=== PATIENT | male | born 1985 | race Caucasian/White ===

== ENCOUNTER 2022-09-24 14:31 | Day surgery (SDC) | payer OTHER, SELFPAY ==
[2022-09-24] VITALS (18 sets, daily range): BP systolic 114–146; BP diastolic 62–98; PULSE 74–103; RESP 16–20; TEMP 36.2–37.6; O2SAT 91–100; BMI 35.2
--- NOTE | 2022-09-24 14:33 | CRLHL7_ITS ---
For Patients: As a result of the Century Cures Act, medical imaging exams and procedure reports are released immediately into your electronic medical record. You may view this report before your referring provider. If you have questions, please contact your health care provider. INDICATION: Peritonsillar abscess TECHNIQUE: CT soft tissue of the neck was acquired with 150 cc Isovue 370 intravenous contrast. COMPARISON: None FINDINGS: Included intracranial portions are unremarkable. Orbits unremarkable. Paranasal sinuses clear. Parotid glands unremarkable. Slight enlargement of the right submandibular gland, probably is secondary to the adjacent inflammation, see comments below. Mild adenoidal enlargement with prominent enlargement of the tonsillar pillars causing severe oropharyngeal narrowing. Marked heterogeneity of the right tonsil with a somewhat crescent-shaped area of low density. There is a rim enhancing superior component which measures 1.9 x 0.9 x 1.5 centimeters with a linear hypodense band extending close to although not definitely communicating with an inferior tonsillar collection measuring 8 x 8 x 8 millimeters (see series 4, image 41). Increased number of jugular lymph nodes, greatest at level 2 on the right measuring 13 millimeters. Epiglottis unremarkable. Thyroid gland unremarkable. IMPRESSION: 1. Marked tonsillar enlargement consistent with tonsillitis as well as adenoidal enlargement. Asymmetric enlargement of the right tonsil with a tonsillar abscess measuring 1.9 x 0.9 x 1.5 centimeters at its largest area. This abscess extends inferiorly although this does not likely connect to a second collection/abscess at the inferior margin of the tonsil which measures 8 x 8 x 8 millimeters. 2. Severe oropharyngeal narrowing secondary to the tonsillar inflammation. 3. Jugular lymphadenopathy, presumed reactive. Please note that all CT scans at this facility use dose modulation, iterative reconstruction, and/or weight-based dosing when appropriate to reduce radiation dose to as low as reasonably achievable. Dictated by Bhavik Villegas MD @ 09/24/2022 4:47:21 PM (Electronically Signed)
--- NOTE | 2022-09-24 14:55 | ED.GENADULT ---
HPI - General Adult General Date Seen: 09/24/22 Chief complaint: Sore Throat Stated complaint: Abscess in back of throat, blocking airway Time Seen by Provider: 09/24/22 14:33 Source: patient and family Mode of arrival: ambulatory Limitations: no limitations History of Present Illness HPI narrative: Patient is a very nice 37-year-old gentleman who presents here for evaluation after 1st being seen in urgent care with the sore throat, his right-sided throat swelling, 3-4 days onset, worse when he swallows, and a slight fever. He notes that he has had this before, had to have it drained in the operating room, and when I notice and tell him that he had may was at a peritonsillar abscess. Stated this occurred approximately 10 years ago, no known drug allergies, denies any really significant runny nose, strep throat was done at Urgent Care, and I do not know the result. He is taking Tylenol and ibuprofen. No chronic medications, no allergies, otherwise healthy. Related Data Home Medications Medication Instructions Recorded Confirmed No Known Home Medications 09/24/22 09/24/22 Allergies Allergy/AdvReac Type Severity Reaction Status Date / Time No Known Drug Allergies Allergy Verified 09/24/22 14:04 Review of Systems Status of ROS: Reports: 10 or more systems reviewed and unremarkable except as noted in History and below PFSH PFS Social History Smoking Status: Never smoker Do you use any of these nicotine containing products: None How often do you have a drink containing alcohol: monthly or less How often do you have six or more drinks on one occasion: Never AUDIT-C Alcohol total score: 1 Non-prescribed substance use: denies use Exam Narrative: Exam Narrative: Patient is seen in room 4 he is in no apparent distress, his voice is however is a little bit muffled, he able to swallow secretions, TMs bilaterally are normal oropharynx reveals right-sided peritonsillar swelling encroaching on the uvula consistent with a peritonsillar abscess, there is some redness of his palate also. Lymphadenopathy is 2+ on the right side, absence on the left side, he has no meningismus able to move his neck normally, no swelling of his neck. Chest is clear bilaterally with no wheezing crackles noted heart sounds are normal, abdomen is soft there is no guarding no organomegaly. Const: Vital Signs, click to edit/add: Vital Signs - 24 hr 09/24/22 14:41 Temperature 98.5 F Pulse Rate [Right Pulse Oximeter] 103 H Respiratory Rate 20 Blood Pressure [Ri ght Upper Arm] 115/82 Pulse Oximetry 101 H Oxygen Delivery Me thod Room Air Documenting provider has reviewed patient's vital signs: yes Course Course Hospital Course: Patient has done well, his CT scan of his neck shows multiple loculated areas of abscess, I made is ENT physician aware of this, he will be taken to the operating room. For definitive management. I will discuss with his doctor about antibiotics, his pain is improved, He is COVID positive, would suggest precautions secondary to this, ASA 1 for surgery, Vital Signs Vital signs: Initial Vital Signs Temperature 98.5 F 09/24/22 14:41 Temperature Source Temporal Artery Scan 09/24/22 14:41 Pulse Rate 103 H 09/24/22 14:41 Respiratory Rate 20 09/24/22 14:41 Blood Pressure 115/82 09/24/22 14:41 Blood Pressure Mean 93 09/24/22 14:41 Blood Pressure Position Sitting 09/24/22 14:41 Pulse Oximetry 101 H 09/24/22 14:41 Oxygen Delivery Method Room Air 09/24/22 14:41 Vital Signs Temperature 98.5 F 09/24/22 14:41 Pulse Rate 103 H 09/24/22 14:41 Respiratory Rate 20 09/24/22 14:41 Blood Pressure 115/82 09/24/22 14:41 Pulse Oximetry 101 H 09/24/22 14:41 Oxygen Delivery Method Room Air 09/24/22 14:41 Temperature 98.5 F 09/24/22 14:41 Pulse Rate 103 H 09/24/22 14:41 Respiratory Rate 20 09/24/22 14:41 Blood Pressure 115/82 09/24/22 14:41 Pulse Oximetry 101 H 09/24/22 14:41 Oxygen Delivery Method Room Air 09/24/22 14:41 Medical Decision Making MDM Narrative Medical decision making narrative: During this evaluation I considered multiple diagnosis including her tonsillar abscess, strep throat, tonsillitis, retropharyngeal abscess, Brandon's angina, tooth abscess, thyroid issues, including thyroiditis, among the other issues. We will go ahead and start an IV, give pain medications CT with the contrast will be done of his soft tissue of his neck, I will communicate with ENT physician once these are done. Lab Data Lab results reviewed: Yes I reviewed the patient's lab results Labs: Lab Results 09/24/22 09/24/22 Range/Units 14:33 14:55 Sodium 140 (135-149) mmol/L Potassium 4.4 (3.6-5.1) mmol/L Chloride 102 (96-114) mmol/L Carbon Dioxide 29 (20-32) mmol/L BUN 12 (5-24) mg/dL Creatinine 1.0 (0.5-1.5) mg/dL Estimated Creat Clear 140.00 Estimated GFR 101 ml/min Glucose 105 (60-115) mg/dL Calcium 9.6 (8.4-10.6) mg/dL SARS-CoV-2 (PCR) POSITIVE SARS-CoV-2 A (Negative) Influenza Type A (PCR) Negative PCR FLU A (Negative) Influenza Type B (PCR) Negative PCR FLU B (Negative) RSV (PCR) Negative PCR RSV (Negative) Imaging Data Soft tissue neck: Attestation: I have reviewed the pertinent imaging results. My impression: Multiple loculated areas of abscess await Radiology assessment Discharge Plan Discharge Clinical Impression: Lab test positive for detection of COVID-19 virus, Abscess, peritonsillar Patient Disposition: XFER to OR Condition: Stable Prescriptions: No Action No Known Home Medications Follow Up/Referrals: Deepak Atkinson MD [Staff Physician] -
[2022-09-24] MEDS: 0.9 % SODIUM CHLORIDE 1000 ml 1,000 ML IV ×2 (15:11→16:20)
[2022-09-24] MEDS: HYDROmorphone 0.5 mg/0.5 ml inj IVP (15:11)
[2022-09-24] MEDS: KETOROLAC 30 MG/ML inj IVP (15:11)
[2022-09-24] MEDS: ONDANSETRON 2 MG/ML inj 4 MG IVP (15:11)
[2022-09-24 15:35] LABS: Chloride* 102 mmol/L (96-114); Sodium* 140 mmol/L (135-149)
[2022-09-24 15:36] LABS: Potassium* 4.4 mmol/L (3.6-5.1)
[2022-09-24 15:38] LABS: Estimated Glomerular Filt Rate 101 ml/min
[2022-09-24 15:39] LABS: Blood Urea Nitrogen* 12 mg/dL (5-24); Carbon Dioxide* 29 mmol/L (20-32); Glucose* 105 mg/dL (60-115)
[2022-09-24 15:40] LABS: Calcium* 9.6 mg/dL (8.4-10.6)
[2022-09-24 15:45] LABS: PCR FLU A Negative PCR FLU A (Negative); PCR FLU B Negative PCR FLU B (Negative); PCR RSV Negative PCR RSV (Negative)
[2022-09-24 16:00] LABS: SARS PCR* POSITIVE SARS-CoV-2 (Negative)
[2022-09-24 16:34] LABS: Basophils Percent Auto 0.3 % (0.0-3.0); Eosinophils Percent Auto 0.9 % (0.0-7.0); Hematocrit 49.3 % (37.0-53.0); Hemoglobin* 17.2 gm/dL (13.5-17.5); Immature Granulocytes Pct Auto 0.4 %; Lymphocytes Percent Auto 21.9 % (20-44); Mean Corpuscular HGB Conc 35 gm/dL (32-36); Mean Corpuscular Hemoglobin 31 pg (26-34); Mean Corpuscular Volume 89 fL (80-100); Monocytes Percent Auto 5.8 % (0.0-11.0); Neutrophils Percent Auto 70.7 % (42.0-72.0); Platelet Count* 224 K/uL (140-440); RDW Coefficient of Variation % 11.7 % (11.5-15.5); Red Blood Count 5.54 m/uL (4.30-5.90); White Blood Count* 11.58 K/uL (4.50-11.00)
[2022-09-24] MEDS: AMPICILLIN/SULBACTAM 3 GM in 0.9 % SODIUM CHLORIDE Mini-bag 100 ML IVPB (16:38)
[2022-09-24 16:39] LABS: Slide Review Reflex No
[2022-09-24 16:51] LABS: C Reactive Protein* 14.3 mg/dL (0.5-1.0)
--- NOTE | 2022-09-24 17:57 | W.PM.ENTCN ---
HPI- ENT Consult Date of Consult Date Seen: 09/24/22 Consult date: 09/24/22 Primary Care Provider: Not a Local Provider Consult Narrative Narrative: Kyle Burk is a 37 year old male [facility] Social History Smoking Status: Never smoker Do you use any of these nicotine containing products: None How often do you have a drink containing alcohol: monthly or less How often do you have six or more drinks on one occasion: Never AUDIT-C Alcohol total score: 1 Non-prescribed substance use: denies use Meds Home Medications and Allergies Allergies Allergy/AdvReac Type Severity Reaction Status Date / Time No Known Drug Allergies Allergy Verified 09/24/22 14:04 Exam Const: Vital Signs, click to edit/add: Vital Signs - 24 hr 09/24/22 14:41 09/24/22 15:30 09/24/22 16:30 Temperature 98.5 F Pulse Rate [Right Pulse Oximeter] 103 H 94 91 Respiratory Rate 20 18 Blood Pressure [Ri ght Upper Arm] 115/82 140/98 H 138/83 Pulse Oximetry 100 98 96 Oxygen Delivery Me thod Room Air Room Air Room Air 09/24/22 17:00 09/24/22 17:30 Temperature Pulse Rate [Right Pulse Oximeter] 90 90 Respiratory Rate 18 18 Blood Pressure [Ri ght Upper Arm] 146/77 H 139/83 Pulse Oximetry 99 96 Oxygen Delivery Me thod Room Air Room Air ENT-CN: Result Labs Labs: Short CBC 09/24/22 Range/Units 14:55 WBC 11.58 H (4.50-11.00) K/uL Hgb 17.2 (13.5-17.5) gm/dL Hct 49.3 (37.0-53.0) % Plt Count 224 (140-440) K/uL BMP 09/24/22 14:55 Sodium 140 Potassium 4.4 Chloride 102 Carbon Dioxide 29 BUN 12 Creatinine 1.0 Glucose 105 Calcium 9.6 Assessment and Plan Assessment and plan (1) Abscess, peritonsillar: Status: Acute (2) Lab test positive for detection of COVID-19 virus: Status: Acute Plan Follow-up from clinic. Reviewed CT scan which shows large right peritonsillar abscess and a smaller abscess that appears to be discontiguous. Discussed with patient we discussed incision and drainage risks including anesthesia bleeding recurrence failure to achieve desired results et cetera were reviewed. He understands and wishes to proceed a set.
--- NOTE | 2022-09-24 17:59 | W.PM.ENTPROC ---
Procedure Note Date of procedure: 09/24/22 Procedure: Preoperative diagnosis right peritonsillar abscess x2 Postoperative diagnosis same Procedure incision drainage 2 right peritonsillar abscesses with amputation of lower 3rd of uvula due to cellulitis Under general endotracheal anesthesia patient was prepped draped usual fashion. The McIvor mouth gag was inserted the tongue retracted forward. The uvula was markedly cellulitic and for enlarged to approximately the size of my thumb. I removed the lower 3rd with needlepoint cautery to allow to decompress. There is a small visible abscess on top of the tonsil inferiorly on the right this was incised and drained. Then the needlepoint cautery was used to make an incision curvilinear from superior tonsil down laterally as well. Sharp and blunt dissection were used to enter the as abscess cavity which was approximately mid tonsil. This was cultured and then copiously irrigated. I widened the opening to 1 cm. The patient was extubated the operating room taken recovery in satisfactory condition. He tolerated procedure well. Blood loss during procedure less than 20 mL. Surgeon: Shane Ovalles MD
--- NOTE | 2022-09-24 18:28 | P.ANES_ITS ---
Anesthesia Charges Start Date/Time Anesthesia Start Date: 09/24/22 Anesthesia Start Time: 17:36 Stop Date/Time Anesthesia Stop Date: 09/24/22 Anesthesia Stop Time: 18:14 Summary Emergency: [employer]
[2022-09-24 19:12] LABS: SARS Antigen* negative (Negative)
--- NOTE | 2022-10-03 10:31 | SUR.PHASEI ---
Charting moved from Phase II to the appropriate Phase I location. Verified all information with Jessica RNs.
== END 2022-09-24 21:30 | disposition home or self-care (01) ==
LOC: ED 16:13 → SS 16:18 → MEDSURG 18:42
PROVIDERS: Emergency Provider Family Medicine; Visit Provider Otolaryngology
PROC: 0C9PXZZ Drainage of Tonsils, External Approach (ICD-10-PCS; CPT 42700; principal; 2022-09-24 16:55)
DX: J36 Peritonsillar abscess (principal); K12.2 Cellulitis and abscess of mouth; U07.1 COVID-19
CPT/HCPCS: 42700; 42140; 00170; 36415; 70491; 80048; 85025; 86140; 87040; 87070; 87075; 87186; 87205; 87426; 87631; 99140; 99284; J0295; J0330; J1100; J1170; J1885; J2250; J2405; J2704; J3010; J7030; Q9967

== ENCOUNTER 2022-11-20 07:57 | Day surgery (SDC) | payer OTHER, SELFPAY ==
[2022-11-20] VITALS (12 sets, daily range): BP systolic 119–138; BP diastolic 74–87; PULSE 68–79; RESP 16–18; TEMP 36.2–37.1; O2SAT 93–98; BMI 36.8
[2022-11-20] MEDS: LACTATED RINGERS 1000 ML 1,000 ML 100 ML IV ×2 (08:00→10:18)
--- NOTE | 2022-11-20 09:05 | W.ANESCHARGE ---
Anesthesia Charges Start Date/Time Anesthesia Start Date: 11/20/22 Anesthesia Start Time: 09:29 Stop Date/Time Anesthesia Stop Date: 11/20/22 Anesthesia Stop Time: 10:20
--- NOTE | 2022-11-20 10:04 | W.PM.ENTPROC ---
Procedure Note Date of procedure: 11/20/22 Procedure: Preoperative diagnosis tonsillar hypertrophy, chronic tonsillitis, history of peritonsillar abscess Postoperative diagnosis same Procedure tonsillectomy Under general endotracheal anesthesia patient was prepped draped usual fashion. The McIvor mouth gag was inserted the tongue retracted forward. The right tonsil was removed with a combination of needlepoint and Coblation. There was some scarring from previous abscess drainage but actually this did not seem to hinder the dissection. The left tonsil was removed in a similar fashion. The nasopharynx was inspected and no significant adenoid tissue was noted. Meticulous hemostasis was achieved in the mid mouth gag was let down the patient observe for 5 minutes. There was no further bleeding. The patient was extubated in the operating room taken recovery in satisfactory condition. Blood loss during procedure less than 10 mL. Surgeon: Shane Ovalles MD
--- NOTE | 2022-11-20 10:19 | W.ANESCHARGE ---
Anesthesia Charges Start Date/Time Anesthesia Start Date: 11/20/22 Anesthesia Start Time: 09:29 Stop Date/Time Anesthesia Stop Date: 11/20/22 Anesthesia Stop Time: 10:20
[2022-11-20] MEDS: OXYCODONE 1 MG/ML ORAL SOLN 5 MG PO (11:09)
[2022-11-20] MEDS: ACETAMINOPHEN 160 MG/5 ML CUP 320 MG PO (11:09)
[2022-11-20] MEDS: IBUPROFEN 100 MG/5 ML SUSP 200 MG PO (12:02)
== END 2022-11-20 12:04 | disposition home or self-care (01) ==
PROVIDERS: Visit Provider Otolaryngology
PROC: (CPT 42826; principal; 2022-11-20 09:15)
DX: J35.01 Chronic tonsillitis (principal)
CPT/HCPCS: 42826; 00170; 88304; A9270; J0330; J1100; J2250; J2405; J2704; J2710; J3010; J7120

== ENCOUNTER 2024-03-06 01:19 | Emergency (ER) | payer OTHER, SELFPAY ==
[2024-03-06] VITALS (11 sets, daily range): BP systolic 106–121; BP diastolic 65–77; PULSE 81–121; RESP 18–22; TEMP 36.7; O2SAT 91–95; BMI 35.2
--- NOTE | 2024-03-06 01:55 | ED.GENADULT ---
HPI - General Adult General Chief complaint: Shortness of Breath/Dyspnea Stated complaint: difficulty breathing, chest pain Time Seen by Provider: 03/06/24 01:55 History of Present Illness HPI narrative: Very pleasant 38-year-old male who is generally healthy, he does have a history of occasional musculoskeletal lumbar spine pain but no history of disc disease or surgery, who presents to the ER today night with his for pain involving his left posterior ribcage and mid/upper back radiating through to his chest. He did have an injury 2 days ago. He was putting together an office chair in his home. He did have a completely bolted together get any sat down and then fell over backwards out of a chair and landed directly on his back. Since then he has been having a flare of pain initially starting in his back. He has been trying to manage this with [id number] meds and [id number] pain patches. It has been painful since then but manageable. Tonight at about 1:00 a.m. the pain got a lot worse and now also radiates to the front of his chest. He is now having pain in the substernal region of his chest. He feels short of breath. His symptoms are better when he sits up and worse when he lays flat. No pain radiating down his arms. No pain down his legs. No swelling in his legs. No recent travel or immobilization. No pain into his neck. No palpitations. No anterior abdominal pain. Related Data Home Medications ?Medication ?Instructions ?Recorded ?Confirmed No Known Home Medications 03/06/24 03/06/24 Allergies Allergy/AdvReac Type Severity Reaction Status Date / Time No Known Drug Allergies Allergy Verified 03/06/24 01:29 [facility] Surgical History (Updated 11/19/22 @ 08:38 by Isak Christian MD) H/O peritonsillar abscess drainage ?Z98.890 - Other specified postprocedural states (ICD-10) History of ear surgery ?Z98.890 - Other specified postprocedural states (ICD-10) Social History Smoking Status: Never smoker Do you use any of these nicotine containing products: None Second hand tobacco smoke exposure: No How often do you have a drink containing alcohol: 4 or more times a week How often do you have six or more drinks on one occasion: Never AUDIT-C Alcohol total score: 4 Non-prescribed substance use: marijuana (any form) Exam Narrative: Exam Narrative: Constitutional: Appears well-developed and well-nourished. He has a very large individual, 6 ft 8 in tall. Symmetric radial and PT artery pulses. He is mildly tachypneic. Heart rate 115 on the monitor. Looks uncomfortable. HENT: Head: Atraumatic. Nose: Nose normal. Mouth/Throat: Oral mucosa is clear and moist. no trismus. Pharynx normal. Tonsils symmetric. No tonsillar enlargement, erythema, or exudate. Eyes: Conjunctivae normal. EOM normal. Pupils equal, round, and reactive to light. No scleral icterus. Neck: Normal range of motion. Neck supple. No tracheal deviation present. No JVD Cardiovascular: Tachycardic, regular rhythm. No gallop. No friction rub. No murmur heard. Symmetric radial artery pulses Pulmonary/Chest: Breathing somewhat fast. No stridor. No respiratory distress. Lung sounds are symmetric. No wheezes. No rales. No rhonchi . He does have tenderness on the left posterior ribcage. No bruising. No rash. No shingles. Abdominal: Soft. Bowel sounds normal. No distension. No mass. No tenderness. No rebound. No guarding. Musculoskeletal: RUE: Normal range of motion. No tenderness. No deformity LUE: Normal range of motion. No tenderness. No deformity RLE: Normal range of motion. No edema. No tenderness. No deformity LLE: Normal range of motion. No edema. No tenderness. No deformity Neurological: Alert and oriented to person, place, and time. Normal strength. CN II-VII intact. No sensory deficit. GCS eye subscore is 4. GCS verbal subscore is 5. GCS motor subscore is 6. Normal coordination Skin: Skin is warm and dry. No rash noted. No pallor. Normal capillary refill. Psychiatric: Normal mood. Normal affect. Const: Vital Signs, click to edit/add: Vital Signs - 24 hr 03/06/24 01:25 Temperature 98.1 F Pulse Rate [Pulse Oximeter] 121 H Respiratory Rate 22 Blood Pressure [Ri ght Upper Arm] 114/65 Pulse Oximetry 94 Oxygen Delivery Me thod Room Air Course Vital Signs Vital signs: Initial Vital Signs Temperature 98.1 F 03/06/24 01:25 Temperature Source Temporal Artery Scan 03/06/24 01:25 Pulse Rate 121 H 03/06/24 01:25 Respiratory Rate 22 03/06/24 01:25 Blood Pressure 114/65 03/06/24 01:25 Blood Pressure Mean 81 03/06/24 01:25 Blood Pressure Position Sitting 03/06/24 01:25 Pulse Oximetry 94 03/06/24 01:25 Oxygen Delivery Method Room Air 03/06/24 01:25 Vital Signs Temperature 98.1 F 03/06/24 01:25 Pulse Rate 121 H 03/06/24 01:25 Respiratory Rate 22 03/06/24 01:25 Blood Pressure 114/65 03/06/24 01:25 Pulse Oximetry 94 03/06/24 01:25 Oxygen Delivery Method Room Air 03/06/24 01:25 Temperature 98.1 F 03/06/24 01:25 Pulse Rate 121 H 03/06/24 01:25 Respiratory Rate 22 03/06/24 01:25 Blood Pressure 114/65 03/06/24 01:25 Pulse Oximetry 94 03/06/24 01:25 Oxygen Delivery Method Room Air 03/06/24 01:25 Medications Administered Medications: Discontinued Medications Generic Name Dose Route Start Last Admin Trade Name Kimberly PRN Reason Stop Dose Admin Hydromorphone HCl 1 mg 03/06/24 02:09 03/06/24 02:21 Hydromorphone 0.5 Mg/0.5 Ml Inj IVP 03/06/24 02:10 1 mg ONCE ONE Administration Ondansetron HCl 4 mg 03/06/24 02:09 03/06/24 02:21 Ondansetron 2 Mg/Ml Inj IVP 03/06/24 02:10 4 mg ONCE ONE Administration Medical Decision Making MDM Narrative Medical decision making narrative: Pleasant 38-year-old male presenting to the ER today for a 2 day history of pain involving his left posterior ribcage and mid/thoracic back that now radiates to the front of his chest since this evening. Differential is broad. Patient did have an injury. He was putting together an office chair, it was not properly secured and when he sat down on it he fell over backwards and landed on his back, Thursday. This raises concern for possible musculoskeletal pain, rib fracture, hemothorax, pneumothorax, pulmonary contusion, renal injury, splenic injury, among others. With his back pain now radiating up to chest pain also consider nontraumatic causes of pain such as aortic dissection. Also although he is young, consider ACS. He has no recent travel, no leg swelling, no signs of DVT, no history of PE. PE would be considered to be much less likely. No anterior abdominal pain to suggest cholecystitis, gastritis, peptic ulcer disease. CT scan of the patient's chest/abdomen pelvis is obtained to rule out aortic dissection and potential thoracic injuries. CT scan does not show any dissection, rib fracture, or other lung injury. Incidental findings on the CT scan include bilateral hazy basilar infiltrates that could be COVID, pneumonitis, or atelectasis. Influenza, COVID negative. He denies any recent cough but did have 1 several days ago. He also has splenomegaly. Also hepatic steatosis. LFTs mildly abnormal likely related to hepatic steatosis. No right upper quadrant tenderness. With the splenomegaly, consider that as a possible cause for his back and chest pain. However I doubt it because he is not having any abdominal pain. No evidence for any splenic rupture or any obvious evidence for splenic infarct on the contrasted CT scan. Brown negative. CBC normal. Would recommend outpatient follow-up with primary care for repeat imaging with ultrasound or CT and further workup to try to explain splenomegaly. Discussed results with patient and his . Discuss precautions for return to the ER and need for outpatient follow-up with primary care. He is agreeable and eager for discharge. Instymeds prescriptions for Flexeril-15 tabs, and oxycodone-12 tabs-. Opiate and sedation precautions reviewed Lab Data Labs: Lab Results 03/06/24 03/06/24 03/06/24 Range/Units 02:08 02:10 03:45 WBC 8.59 (4.50-11.00) K/uL RBC 5.12 (4.30-5.90) m/uL Hgb 15.9 (13.5-17.5) gm/dL Hct 45.1 (37.0-53.0) % MCV 88 (80-100) fL MCH 31 (26-34) pg MCHC 35 (32-36) gm/dL RDW Coeff of Apryl 12.1 (11.5-15.5) % Plt Count 156 (140-440) K/uL Neut % (Auto) 77.2 H (42.0-72.0) % Lymph % (Auto) 12.3 L (20-44) % Brown % (Auto) 8.3 (0.0-11.0) % Eos % (Auto) 0.9 (0.0-7.0) % Baso % (Auto) 0.6 (0.0-3.0) % Neut # (Auto) 6.60 (1.7-7.0) K/uL Lymph # (Auto) 1.10 (0.90-2.90) K/uL Brown # (Auto) 0.70 (0.00-0.90) K/UL Eos # (Auto) 0.08 (0.00-0.50) K/uL Baso # (Auto) 0.05 (0.00-0.30) K/uL Abs Immat Gran (auto) 0.06 (0.00-0.30) K/uL Imm/Tot Granulo (auto) 0.7 % Sodium 136 (135-149) mmol/L Potassium 3.9 (3.6-5.1) mmol/L Chloride 106 (96-114) mmol/L Carbon Dioxide 18 L (20-32) mmol/L Anion Gap 12 (7-15) mEq/L BUN 17 (5-24) mg/dL Creatinine 1.1 (0.5-1.5) mg/dL Estimated Creat Clear 126.06 Estimated GFR 89 ml/min Glucose 144 H (60-115) mg/dL Calcium 9.2 (8.4-10.6) mg/dL Total Bilirubin 1.4 (0.1-1.5) mg/dL Direct Bilirubin 0.5 (0.0-0.5) mg/dL AST 46 H (12-35) U/L ALT 98 H (4-50) U/L Alkaline Phosphatase 82 (40-150) U/L Total Protein 6.9 (6.0-8.3) g/dL Albumin 4.4 (3.3-5.0) g/dL SARS-CoV-2 (PCR) Negative SARS-CoV-2 (Negative) Monoscreen Negative (Negative) Influenza Type A (PCR) Negative PCR FLU A (Negative) Influenza Type B (PCR) Negative PCR FLU B (Negative) POC Troponin I 0.00 L (0.01-0.04) ng/ml Imaging Data CT Chest/Ab/Pelvis: Attestation: I have reviewed the pertinent imaging results. Radiologist's impression: IMPRESSION: 1. No evidence of an aortic dissection. 2. Patchy bibasilar consolidation with surrounding ground-glass opacities which may reflect sequelae of aspiration and/or pneumonia. 3. Hepatic steatosis. 4. Moderate splenomegaly. ECG Data Attestation: I personally reviewed and interpreted this ECG as follows: Interpretation: Sinus tach Rate: 115 GA: 152 QRS axis: Normal axis ST segment/T wave: No pathologic Q-waves. No ST segment elevation or depression. QTc: 467 Discharge Plan Discharge Clinical Impression: Acute upper back pain, Chest pain Patient Disposition: Home, Self-Care Condition: Stable Instructions: Chest Pain (ED), Back Pain (ED) Additional Instructions: As we discussed, we do not see any serious cause for your upper back pain or chest pain tonight. No sign of a heart attack, problem with her aorta, rib fracture, punctured a collapsed lung. Monitor symptoms carefully and if you have worsening pain, trouble breathing, or any problems, come back to the ER right away to be rechecked. Your CT scan does show that you have a enlarged spleen. The cause for this is unclear. It is probably not related to your pain. It is very important for you to follow-up with her doctor to get a recheck within the next couple of weeks. Use your [id number] pain medications to treat your symptoms 1st. If you have pain uncontrolled by those meds, you can use prescription pain killers and muscle relaxers. Use caution with prescription pain killers and muscle relaxers because they cause drowsiness, dizziness. You should not drive for 6 hours after taking these meds. Prescription pain killers can be addictive so use them sparingly and only if needed. If you need to arrange a follow-up appointment with the [facility], you can call [phone] to arrange an ER follow-up visit. Prescriptions: No Action No Known Home Medications Follow Up/Referrals: Provider,Not a Local [Primary Care Provider] - Stand Alone Forms: OBMedical Info Instructions
--- NOTE | 2024-03-06 02:06 | CRLHL7_ITS ---
For Patients: As a result of the 21st Century Cures Act, medical imaging exams and procedure reports are released immediately into your electronic medical record. You may view this report before your referring provider. If you have questions, please contact your health care provider. INDICATION: LT THORACIC AND BACK PAIN, RADIATING TO ANTERIOR CHEST. TECHNIQUE: CT chest without contrast and CT chest, abdomen and pelvis acquired with 100 cc Omnipaque 350 IV contrast, dissection protocol. COMPARISON: None. FINDINGS: CHEST: Cardiovascular structures: The unenhanced images demonstrate no evidence of aortic intramural thrombus. Thoracic aorta is normal in caliber without evidence of dissection. Heart size is normal. The main pulmonary artery is slightly dilated to 3.3 cm, which can be seen in the setting of pulmonary hypertension. Mediastinum and richard: No mass or adenopathy. Lungs and pleura: Patchy bibasilar consolidations. No pleural effusions. Chest wall and axilla: No mass or adenopathy. Bones: Unremarkable for age. ABDOMEN AND PELVIS: Liver: Diffusely hypodense hepatic parenchyma, compatible with steatosis. Gallbladder and bile ducts: Unremarkable. Pancreas: Unremarkable. Spleen: Moderate splenomegaly, measuring 17.4 cm in anteroposterior extent. Adrenal glands: Unremarkable. Kidneys: Subcentimeter cortical hypodensities are too small to characterize. No hydroureteronephrosis. GI tract: Unremarkable. Vascular structures: Abdominal aorta is normal in caliber without evidence of dissection. Mesenteric arteries are patent. Lymph nodes: Unremarkable. Miscellaneous: Unremarkable. No free air or significant free fluid. Pelvic Organs: Unremarkable. Bones: Unremarkable for age. IMPRESSION: 1. No evidence of an aortic dissection. 2. Patchy bibasilar consolidation with surrounding ground-glass opacities which may reflect sequelae of aspiration and/or pneumonia. 3. Hepatic steatosis. 4. Moderate splenomegaly. Please note that all CT scans at this facility use dose modulation, iterative reconstruction, and/or weight-based dosing when appropriate to reduce radiation dose to as low as reasonably achievable. Dictated by Leno Plasencia MD @ 03/06/2024 3:11:25 AM (Electronically Signed)
--- OUTSIDE RECORDS SUMMARY | 2024-03-06 02:17 | XMS_ITS | Clinical Summary ---
Author Organization [facility] Address [place], [place] [address] Care Team Providers Care Vp Cardiovascular Name Role Phone Pcp, No Primary Care Provider Unavailabl e Allergies Active Allergy Reactions Criticality Noted Date Comments Sulfa (Sulfonamide Antibiotics) *Unknown 11/22 Medications No known medications Active Problems Problem Noted Date Diagnosed Date Intermittent low back pain 05/25/2018 Immunizations Name Administration Dates Next Due Influenza, IIV4 05/15/2018 Tdap 05/15/2018 Family History Medical History Relation Name Comments Good Health Brother Cancer-colon Father Heart Disease Father Cervical cancer Mother Relation Name Status Comments Brother Father Alive Mother Alive Social History Tobacco Use Types Packs/Day Years Used Date Smoking Tobacco: Never Smokeless Tobacco: Never Alcohol Use Standard Drinks/Week Comments Yes 0 (1 standard drink = 0.6 oz pure alcohol) 4-5 drinks per day on weekends only Sex and Gender Information Value Date Recorded Sex Assigned at Not on file Gender Identity Not on file Sexual Orientation Not on file Obstetrics History Last Filed Vital Signs Vital Sign Reading Time Taken Comments Blood Pressure 122/68 05/15/2018 3:29 PM [employer] Pulse 76 05/15/2018 3:29 PM [employer] Temperature 36.1 ??C (97 ??F) 12/19/2010 1:18 PM CDT Respiratory Rate 16 12/19/2010 1:18 PM CDT Oxygen Saturation 96% 12/19/2010 1:18 PM CDT Inhaled Oxygen Concentration - - Weight 142.4 kg (314 lb) 05/15/2018 3:29 PM [employer] Height 201.9 cm (6' 7.5) 05/15/2018 3:29 PM [employer] Body Mass Index 34.93 05/15/2018 3:29 PM [employer] Plan of Treatment Health Maintenance Due Date Last Done Comments Depression screening for age 12+ 1999 HIV for age 15-65 2002 Hepatitis C screening for ag e 18-79 2005 BMI (ht and wt on same day) for age 18+ 05/15/2019 05/15/2018 Lipids for age 35-44 2022 COVID-19 vaccine series ( season) 2024 Influenza for age 9-49 02/22/2024 05/15/2018 Tetanus booster 05/15/2028 05/15/2018 Tdap Completed 05/15/2018 Pneumococcal series for age 6-64 Aged Out No longer eligible based on patient's age to complete this topic Care Teams Vp Cardiovascular Relationship Specialty Start Date End Date Pcp, No . PCP - General 12/19/10
--- OUTSIDE RECORDS SUMMARY | 2024-03-06 02:17 | XMS_ITS | Clinical Summary ---
Author Organization [facility] Address [address] [place] [id number] Care Team Providers Care Algebraist Name Role Phone No Ref-Primary, Physician Primary Care Provider Allergies No known active allergies Medications No known medications Active Problems Problem Noted Date Diagnosed Date CARDIOVASCULAR SCREENING; LDL GOAL LESS THAN 160 04/19/2011 Family History Medical History Relation Comments C.A.D. Father Cancer - colorectal Father Hypertension Father Relation Status Comments Father Social History Tobacco Use Types Packs/Day Years Used Date Smoking Tobacco: Never Smokeless Tobacco: Never Alcohol Use Standard Drinks/Week Comments Yes 0 (1 standard drink = 0.6 oz pur e alcohol) Adolescent Education Answer Date Record ed Getting School Help Needed Not on file 03/14 Sex and Gender Information Value Date Recorded Sex Assigned at Not on file Gender Identity Not on file Sexual Orientation Not on file Last Filed Vital Signs Vital Sign Reading Time Taken Comments Blood Pressure 128/77 09/12/2020 1:15 PM CDT Pulse 80 09/12/2020 1:30 PM CDT Temperature 36.4 ??C (97.6 ??F) 09/12/2020 8:10 AM CD T Respiratory Rate 16 09/12/2020 1:15 PM CDT Oxygen Saturation 99% 09/12/2020 1:15 PM CDT Inhaled Oxygen Concentration - - Weight 126.1 kg (278 lb) 04/19/2011 11:11 AM CDT Height 201.9 cm (6' 7.5) 04/19/2011 11:11 AM CD T Body Mass Index 30.93 04/19/2011 11:11 AM CDT Plan of Treatment Not on file Care Teams Algebraist Relationship Specialty Start Date End Date No Ref-Primary, Physician PCP - General 05/07/19
--- OUTSIDE RECORDS SUMMARY | 2024-03-06 02:17 | XMS_ITS | Referral Summary ---
Author Organization [facility] Address [address] [place] [id number] Care Team Providers Care Programming Coordinator Name Role Phone No Ref-Primary, Physician Primary Care Provider Allergies No known active allergies Medications No known medications Active Problems Problem Noted Date Diagnosed Date CARDIOVASCULAR SCREENING; LDL GOAL LESS THAN 160 04/19/2011 Social History Tobacco Use Types Packs/Day Years [...] of Treatment Not on file Care Teams Programming Coordinator Relationship Specialty Start Date End Date No Ref-Primary, Physician PCP - General 05/07/19
[2024-03-06] MEDS: HYDROmorphone 0.5 mg/0.5 ml inj 1 MG IVP (02:21)
[2024-03-06] MEDS: ONDANSETRON 2 MG/ML inj 4 MG IVP (02:21)
[2024-03-06 02:25] LABS: Basophils Absolute Auto 0.05 K/uL (0.00-0.30); Basophils Percent Auto 0.6 % (0.0-3.0); Eosinophils Absolute Auto 0.08 K/uL (0.00-0.50); Eosinophils Percent Auto 0.9 % (0.0-7.0); Hematocrit 45.1 % (37.0-53.0); Hemoglobin* 15.9 gm/dL (13.5-17.5); Immature Granulocytes Abs Auto 0.06 K/uL (0.00-0.30); Immature Granulocytes Pct Auto 0.7 %; Lymphocytes Percent Auto 12.3 % (20-44); Mean Corpuscular HGB Conc 35 gm/dL (32-36); Mean Corpuscular Hemoglobin 31 pg (26-34); Mean Corpuscular Volume 88 fL (80-100); Monocytes Percent Auto 8.3 % (0.0-11.0); Neutrophils Percent Auto 77.2 % (42.0-72.0); Platelet Count* 156 K/uL (140-440); RDW Coefficient of Variation % 12.1 % (11.5-15.5); Red Blood Count 5.12 m/uL (4.30-5.90); White Blood Count* 8.59 K/uL (4.50-11.00)
[2024-03-06 02:30] LABS: Slide Review Reflex No
[2024-03-06 02:38] LABS: Chloride* 106 mmol/L (96-114); Potassium* 3.9 mmol/L (3.6-5.1); Sodium* 136 mmol/L (135-149)
[2024-03-06 02:41] LABS: Creatinine* 1.1 mg/dL (0.5-1.5); Est. Creatinine Clearance* 126.06; Estimated Glomerular Filt Rate 89 ml/min
[2024-03-06 02:42] LABS: Anion Gap 12 mEq/L (7-15); Blood Urea Nitrogen* 17 mg/dL (5-24); Calcium* 9.2 mg/dL (8.4-10.6); Carbon Dioxide* 18 mmol/L (20-32); Glucose* 144 mg/dL (60-115)
[2024-03-06 03:36] LABS: Albumin* 4.4 g/dL (3.3-5.0)
[2024-03-06 03:39] LABS: Aspartate Amino Transferase* 46 U/L (12-35); Bilirubin Direct* 0.5 mg/dL (0.0-0.5); Bilirubin Total* 1.4 mg/dL (0.1-1.5); Total Protein* 6.9 g/dL (6.0-8.3)
[2024-03-06 03:40] LABS: Alanine Aminotransferase* 98 U/L (4-50); Alkaline Phosphatase* 82 U/L (40-150)
[2024-03-06 03:45] LABS: Mono Screen* Negative (Negative)
[2024-03-06 04:51] LABS: PCR FLU A Negative PCR FLU A (Negative); PCR FLU B Negative PCR FLU B (Negative); SARS PCR* Negative SARS-CoV-2 (Negative)
== END 2024-03-06 05:23 | disposition home or self-care (01) ==
PROVIDERS: Emergency Provider Emergency Medicine
DX: M54.89 Other dorsalgia (principal); R07.9 Chest pain, unspecified
CPT/HCPCS: 36415; 71275; 74174; 80048; 80076; 84484; 85025; 86308; 87631; 94761; 96374; 99284; 99285; J1170; J2405; Q9967